=== PATIENT | male | born 1960 | race Caucasian/White ===

== ENCOUNTER → 2018-08-28 | Outpatient (CLI) | payer BC ==
[~2018-08-28] MED LIST: OXYC-307 PO
[2018-08-28 08:51] LABS: BASOPHILS # (AUTO) 0.03 x10^3/uL (0-0.1); BASOPHILS % (AUTO) 1 % (0-1); EOSINOPHILS # (AUTO) 0.09 x10^3/uL (0-0.4); EOSINOPHILS % (AUTO) 1 % (1-7); LYMPHOCYTES # (AUTO) 1.36 x10^3/uL (1-3.4); LYMPHOCYTES % (AUTO) 21 % (22-44); MD NO; MEAN CORPUSCULAR HEMOGLOBIN 32.5 pg (27.5-34.5); MEAN CORPUSCULAR HGB CONC 35.2 g/dL (33.2-36.2); MEAN CORPUSCULAR VOLUME 92.2 fL (81-97); MEAN PLATELET VOLUME 7.7 fL (7.4-10.4); MONOCYTES # (AUTO) 0.56 x10^3/uL (0.2-0.8); MONOCYTES % (AUTO) 9 % (2-9); NEUTROPHILS # (AUTO) 4.44 x10^3/uL (1.8-6.8); NEUTROPHILS % (AUTO) 69 % (42-75); PLATELET COUNT 247 x10^3/uL (130-400); RED BLOOD COUNT 5.07 x10^6/uL (4.38-5.82); RED CELL DISTRIBUTION WIDTH 12.6 % (9.4-14.8)
[2018-08-28 08:58] LABS: ANION GAP 7 mmol/L (5-15); CHLORIDE 109 mmol/L (98-107)
[2018-08-28 08:59] LABS: CULTURE INDICATED? NO; INTERNATIONAL NORMALIZED RATIO 1.09 (0.93-1.1); MICROSCOPIC NOT IND; PROTHROMBIN TIME 11.2 Seconds (9.6-11.5)
== END | disposition home or self-care (01) ==
LOC: STAR 07:42
PROVIDERS: ATTEND Neurological Surgery
DX: Z01.818 Encounter for other preprocedural examination (principal); I48.91 Unspecified atrial fibrillation; M51.26 Other intervertebral disc displacement, lumbar region
CPT/HCPCS: 36415; 71046; 80048; 81003; 85025; 85610; 85730; 93005

== ENCOUNTER → 2018-09-04 | Outpatient (CLI) | payer BC ==
[~2018-09-04] MED LIST changes: +CYCL-259 PO
== END | disposition home or self-care (01) ==
LOC: CARD 10:34
PROVIDERS: ATTEND Internal Medicine Cardiovascular Disease
DX: Z01.810 Encounter for preprocedural cardiovascular examination (principal); I48.0 Paroxysmal atrial fibrillation
CPT/HCPCS: 93017; 93306

== ENCOUNTER 2018-09-07 07:19 | Day surgery (SDC) | payer BC ==
[~2018-09-07] VITALS: Ht 188 cm; Wt 79.5 kg
[~2018-09-07 07:19] MED LIST changes: -CYCL-259 PO
[2018-09-07 08:20] VITALS: BP 123/81
[2018-09-07] MEDS ORDERED: BUPIVACAINE/PF-EPI 0.5% 1:200K ONE (09:03)
[2018-09-07] MEDS ORDERED: METHYLENE BLUE 10 MG/ML 10ML ONE (09:03)
[2018-09-07] MEDS ORDERED: BACITRACIN 50,000 UNIT ONE (09:04)
[2018-09-07] MEDS ORDERED: THROMBIN 20,000 UNIT VIAL TP ONE (09:04)
[2018-09-07] MEDS ORDERED: FENTANYL PF 250 MCG/5ML ONE (10:07)
[2018-09-07] MEDS ORDERED: MIDAZOLAM 1 MG/ML, 2ML ONE (10:07)
[2018-09-07] MEDS ORDERED: ROCURONIUM 10MG/ML,5ML ONE (10:10)
[2018-09-07] MEDS ORDERED: LABETALOL 5MG/ML, 20ML IV PRN (10:30)
[2018-09-07] MEDS ORDERED: ACETAMINOPHEN 325 MG TABLET PO PRN (10:30)
[2018-09-07] MEDS ORDERED: OXYcodone 5 MG/5 ML ORAL.SOL UDC PO PRN (10:30)
[2018-09-07] MEDS ORDERED: MEPERIDINE/PF 25MG/0.5ML IVPush PRN (10:30)
[2018-09-07] MEDS ORDERED: hydrALAzine 20 MG/ML, 1ML IV PRN (10:30)
[2018-09-07] MEDS ORDERED: HYDROmorphone 2 MG/ML, 1ML IV PRN (10:30)
[2018-09-07] MEDS ORDERED: PROMETHAZINE 25 MG/ML, 1ML IV PRN (10:30)
[2018-09-07] MEDS ORDERED: ONDANSETRON 2MG/ML, 2ML IV PRN (10:30)
[2018-09-07] MEDS ORDERED: FENTANYL PF 100 MCG/2ML IV PRN (10:30)
[2018-09-07] MEDS ORDERED: CEFAZOLIN 1,000 MG ONE ×2 (11:37)
[2018-09-07] MEDS ORDERED: METOPROLOL 1 MG/ML, 5ML ONE (11:47)
[2018-09-07] MEDS ORDERED: PROPOFOL 10 MG/ML, 20ML ONE (11:54)
[2018-09-07] MEDS ORDERED: ONDANSETRON 2MG/ML, 2ML ONE (11:54)
[2018-09-07] MEDS ORDERED: BUPIVACAINE/PF-EPI 0.5% 1:200K INFIL ONE ×2 (12:04→12:05)
[2018-09-07] MEDS ORDERED: methylPREDNISolone SOD SUCC 40 MG/ML ONE (12:22)
[2018-09-07] MEDS ORDERED: FENTANYL PF 100 MCG/2ML ONE ×2 (12:28→12:35)
[2018-09-07] MEDS ORDERED: OXYcodone 5 MG/5 ML ORAL.SOL UDC ONE (12:35)
[2018-09-07] MEDS ORDERED: CYCL-259 PO (12:49)
[2018-09-07] MEDS ORDERED: OXYC-307 PO (12:49)
[2018-09-07] MEDS ORDERED: morphine SULFATE 10 MG/ML, 1ML IVPush PRN (13:00)
[2018-09-07] MEDS ORDERED: PROMETHAZINE 25 MG/ML, 1ML IM PRN (13:00)
[2018-09-07] MEDS ORDERED: ONDANSETRON 2MG/ML, 2ML IVPush PRN (13:00)
[2018-09-07] MEDS ORDERED: CYCLOBENZAPRINE 10 MG TABLET PO PRN (13:00)
[2018-09-07] MEDS ORDERED: DIPHENHYDRAMINE 50 MG CAPSULE PO PRN (13:00)
[2018-09-07] MEDS ORDERED: MAGNESIUM HYDROXIDE 8%, 30ML UDC PO PRN (13:00)
[2018-09-07] MEDS ORDERED: OXYcodone/APAP 10/325MG TABLET PO PRN (13:00)
[2018-09-07] MEDS ORDERED: SENNA/DOCUSATE TABLET PO PRN (13:00)
[2018-09-07] MEDS ORDERED: PHARMACY MAY ADJ FOR RENAL FX MC PRN (13:00)
[2018-09-07] MEDS ORDERED: NS + 20MEQ KCL 1,000 ML IV SCH (13:00)
[2018-09-07 13:45] VITALS: BP 118/83
[2018-09-07 16:24] VITALS: BP 125/85
[2018-09-07] MEDS ORDERED: SODIUM CHLORIDE FLUSH 10ML SYR IVF SCH (21:00)
== END 2018-09-07 16:40 | disposition home or self-care (01) ==
LOC: OR 07:19 → 4NOR 07:33 → OR 16:40
PROVIDERS: ATTEND Neurological Surgery
DX: M51.16 Intervertebral disc disorders with radiculopathy, lumbar region (principal); Z72.89 Other problems related to lifestyle
CPT/HCPCS: 63030; 72100; J0690; J2250; J2405; J2704; J2920; J3010; G0378; Q9968

== ENCOUNTER 2018-11-28 10:03 | Day surgery (SDC) | payer BC ==
[~2018-11-28] VITALS: Ht 188 cm; Wt 81.8 kg
[~2018-11-28 10:03] MED LIST changes: +CYCL-259 PO
[2018-11-28 10:33] VITALS: BP 133/88
[2018-11-28] MEDS ORDERED: RIVA20TA PO (10:38)
[2018-11-28 10:47] LABS: INTERNATIONAL NORMALIZED RATIO 1.18 (0.93-1.1); PROTHROMBIN TIME 12.4 Seconds (9.6-11.5)
[2018-11-28 10:48] LABS: ANION GAP 6 mmol/L (5-15); CALCIUM 8.7 mg/dL (8.5-10.1); CHLORIDE 110 mmol/L (98-107); CREATININE 0.89 mg/dL (0.7-1.3)
[2018-11-28] MEDS ORDERED: FENTANYL PF 100 MCG/2ML ONE (11:11)
[2018-11-28] MEDS ORDERED: MIDAZOLAM 1 MG/ML, 5ML ONE (11:11)
== END 2018-11-28 13:28 | disposition home or self-care (01) ==
LOC: CACL 10:03
PROVIDERS: ATTEND Internal Medicine Cardiovascular Disease
DX: I48.0 Paroxysmal atrial fibrillation (principal); Z72.89 Other problems related to lifestyle; Z98.890 Other specified postprocedural states; Z79.01 Long term (current) use of anticoagulants
CPT/HCPCS: 36415; 80048; 85610; 92960; J2250; J3010

== ENCOUNTER → 2020-08-19 | Outpatient (CLI) | payer BC ==
[~2020-08-19] MED LIST changes: +OXYC-302 PO; +OXYCODONE PO; +RIVA20TA PO; +TIZA2TAB4 PO; +TIZANIDINE
[2020-08-19 16:02] LABS: BASOPHILS % (AUTO) 0 % (0-1); EOSINOPHILS % (AUTO) 1 % (1-7); LYMPHOCYTES % (AUTO) 12 % (22-44); MEAN CORPUSCULAR HEMOGLOBIN 31.5 pg (27.5-34.5); MEAN PLATELET VOLUME 7.4 fL (7.4-10.4); MONOCYTES % (AUTO) 8 % (2-9); NEUTROPHILS % (AUTO) 78 % (42-75); PLATELET COUNT 225 x10^3/uL (130-400); RED BLOOD COUNT 4.96 x10^6/uL (4.38-5.82); RED CELL DISTRIBUTION WIDTH 13.2 % (9.4-14.8)
[2020-08-19 16:04] LABS: MD NO
[2020-08-19 16:05] LABS: MICROSCOPIC NOT IND
[2020-08-19 16:13] LABS: ANION GAP 3 mmol/L (5-15); CALCIUM 8.8 mg/dL (8.5-10.1); CHLORIDE 106 mmol/L (98-107); CREATININE 0.94 mg/dL (0.7-1.3)
[2020-08-19 16:15] LABS: INTERNATIONAL NORMALIZED RATIO 1.04 (0.93-1.1); PROTHROMBIN TIME 10.7 Seconds (9.6-11.5)
== END | disposition home or self-care (01) ==
LOC: STAR 14:32
PROVIDERS: ATTEND Neurological Surgery
DX: Z01.818 Encounter for other preprocedural examination (principal); Z20.828 Contact with and (suspected) exposure to other viral communicable diseases; M51.26 Other intervertebral disc displacement, lumbar region
CPT/HCPCS: 36415; 71046; 80048; 81003; 85025; 85610; 85730; 87635; 93005

== ENCOUNTER 2020-08-24 05:40 | Day surgery (SDC) | payer BC ==
[~2020-08-24] VITALS: Ht 188 cm; Wt 79.0 kg
[~2020-08-24 05:40] MED LIST changes: -OXYC-302 PO; -TIZA2TAB4 PO
[2020-08-24] MEDS ORDERED: CHLORHEXIDINE 15 ML UDC MM STA (06:31)
[2020-08-24 06:33] VITALS: BP 137/80
[2020-08-24] MEDS ORDERED: BUPIVACAINE/PF 0.5% ONE (06:37)
[2020-08-24] MEDS ORDERED: EPINEPHRINE 1 MG/ML, 1ML ONE ×2 (06:37→07:52)
[2020-08-24] MEDS ORDERED: LACTATED RINGERS 1,000 ML IV SCH (06:37)
[2020-08-24] MEDS ORDERED: BACITRACIN 50,000 UNIT ONE (06:37)
[2020-08-24] MEDS ORDERED: methylPREDNISolone SOD SUCC 125 MG/2 ML ONE (06:42)
[2020-08-24] MEDS ORDERED: FENTANYL PF 100 MCG/2ML ONE ×2 (06:42→09:35)
[2020-08-24] MEDS ORDERED: MIDAZOLAM 1 MG/ML, 2ML ONE (06:53)
[2020-08-24] MEDS ORDERED: FENTANYL PF 250 MCG/5ML ONE ×2 (06:53→08:27)
[2020-08-24] MEDS ORDERED: morphine SULFATE 10 MG/ML, 1ML IVPush PRN (07:30)
[2020-08-24] MEDS ORDERED: ACETAMINOPHEN 325 MG TABLET PO PRN (07:30)
[2020-08-24] MEDS ORDERED: MEPERIDINE/PF 25MG/0.5ML IVPush PRN (07:30)
[2020-08-24] MEDS ORDERED: LABETALOL 5MG/ML, 20ML IV PRN (07:30)
[2020-08-24] MEDS ORDERED: HALOPERIDOL 5 MG/ML IV PRN (07:30)
[2020-08-24] MEDS ORDERED: PROMETHAZINE 25 MG/ML, 1ML IVPush PRN (07:30)
[2020-08-24] MEDS ORDERED: OXYcodone 5 MG/5 ML ORAL.SOL UDC PO PRN (07:30)
[2020-08-24] MEDS ORDERED: HYDROmorphone 1 MG/ML, 1ML INJ IVPush PRN (07:30)
[2020-08-24] MEDS ORDERED: hydrALAzine 20 MG/ML, 1ML IV PRN (07:30)
[2020-08-24] MEDS ORDERED: ROCURONIUM 10 MG/ML,10ML ONE (07:39)
[2020-08-24] MEDS ORDERED: BUPIVACAINE/PF 0.25% ONE (07:52)
[2020-08-24] MEDS ORDERED: GLYCOPYRROLATE 0.2MG/1ML, 5ML ONE (07:55)
[2020-08-24] MEDS ORDERED: CEFAZOLIN 1,000 MG ONE (07:55)
[2020-08-24] MEDS ORDERED: ONDANSETRON 2MG/ML, 2ML ONE (07:55)
[2020-08-24] MEDS ORDERED: DEXAMETHASONE 4 MG/ML, 1ML ONE (07:55)
[2020-08-24] MEDS ORDERED: PROPOFOL 10 MG/ML, 20ML ONE (07:55)
[2020-08-24] MEDS ORDERED: NEOSTIGMINE 1 MG/ML, 10ML ONE (07:55)
[2020-08-24] MEDS ORDERED: BUPIVACAINE/PF-EPI 0.25% 1:200K INFIL ONE (08:19)
[2020-08-24] MEDS ORDERED: BACITRACIN 50,000 UNIT IM ONE (08:20)
[2020-08-24] MEDS ORDERED: OXYC-302 PO (09:07)
[2020-08-24] MEDS ORDERED: TIZA2TAB4 PO (09:07)
[2020-08-24] MEDS ORDERED: METHOCARBAMOL 1,000 MG in DEXTROSE 5% 100 ML IV ONE (09:30)
[2020-08-24] MEDS ORDERED: ACETAMINOPHEN 650 MG/20.3 ML UDC ONE (09:35)
[2020-08-24] MEDS ORDERED: OXYcodone 5 MG/5 ML ORAL.SOL UDC ONE (09:35)
[2020-08-24] MEDS: FENTANYL PF 100 MCG/2ML IV PRN ×2 (09:41→09:51)
== END 2020-08-24 11:30 | disposition home or self-care (01) ==
LOC: OUT 05:40
PROVIDERS: ATTEND Neurological Surgery
DX: M51.16 Intervertebral disc disorders with radiculopathy, lumbar region (principal); Z79.891 Long term (current) use of opiate analgesic; Z79.899 Other long term (current) drug therapy; Z82.3 Family history of stroke
CPT/HCPCS: 63042; 72100; J0171; J0690; J1100; J2250; J2405; J2704; J2710; J2800; J2930; J3010; J7120; J3490